=== PATIENT | female | born 1975 | race Caucasian/White ===

== ENCOUNTER 2022-08-14 16:16 | Emergency (ER) | payer BC | END 2022-08-14 18:25 | disposition home or self-care (01) | LOC: LB.ED 16:16 | DX: S52.502A Unspecified fracture of the lower end of left radius, initial encounter for closed fracture (principal); S52.612A Displaced fracture of left ulna styloid process, initial encounter for closed fracture; W01.0XXA Fall on same level from slipping, tripping and stumbling without subsequent striking against object, initial encounter; Y93.01 Activity, walking, marching and hiking | CPT/HCPCS: 73110-LT; 99283 ==